=== PATIENT | female | born 1955 | race Caucasian/White ===

== ENCOUNTER 2017-06-12 08:10 | Outpatient (CLI) | payer BC ==
--- NOTE | 2017-06-12 10:01 | ULT ---
ULTRASOUND SPLEEN: Date: 06-12-17 History: Splenomegaly. Low white blood cell count. FINDINGS: The spleen demonstrates a normal sonographic appearance and measures 10.7 cm in craniocaudal dimensio ns which is within normal limits. No splenic lesion is appreciated on this exam. IMPRESSION: Normal sonographic appearance of the spleen without evidence of splenomegaly. POS: [facility]
== END 2017-06-12 08:11 | disposition home or self-care (01) ==
LOC: SCSULT 08:10
PROVIDERS: ATTEND Internal Medicine Medical Oncology
DX: D72.818 Other decreased white blood cell count (principal); R16.1 Splenomegaly, not elsewhere classified
CPT/HCPCS: 76705